=== PATIENT | female | born 1965 | race Caucasian/White ===

== ENCOUNTER 2018-03-01 19:20 | Emergency (ER) | payer BC, OTHER ==
[2018-03-01 19:34] VITALS: BP 167/97
[2018-03-01] MEDS ORDERED: TETANUS/DIPHTHERIA/PERTUSSIS 0.5 ML SYRINGE IM ONE (19:55)
[2018-03-01] MEDS ORDERED: CIPROFLOXACIN 250 MG TABLET PO STA (19:56)
[2018-03-01] MEDS ORDERED: CLINDAMYCIN 150 MG CAPSULE PO STA (19:56)
--- NOTE | 2018-03-01 20:18 | ED Physician Documentation ---
PD HPI UPPER EXT INJURY - Stated complaint Stated Complaint: DOG BITE LT HAND - Chief complaint Chief Complaint: Wound - History obtained from History obtained from: Patient - History of Present Illness Location: Left, Hand Type of injury: Laceration ([place] Tetanus is unknown. Dog looked healthy. 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 - Present Medications Home Medications: Ambulatory Orders Medication Instructions Recorded Confirmed Clindamycin [Cleocin] 0 mg ORAL QID 07/24/14 03/01/18 Prednisone 10 mg PO DAILY #26 tab.ds.pk 07/24/14 03/01/18 cefUROXime axetil [Ceftin] 500 mg PO Q12H #30 tablet 07/24/14 03/01/18 levoFLOXacin [Levaquin] 0 mg ORAL DAILY 07/24/14 03/01/18 Ciprofloxacin HCl [Cipro] 500 mg PO BID #14 tablet 03/01/18 Clindamycin [Cleocin] 300 mg PO Q6H 7 Days capsule 03/01/18 - Allergies Allergies/Adverse Reactions: Allergies Allergy/AdvReac Type Severity Reaction Status Date / Time Penicillins Allergy Edema Verified 03/01/18 19:31 - Social History Does the pt smoke?: No Smoking Status: Never smoker Does the pt drink ETOH?: Yes Does the pt have substance abuse?: No - Immunizations Immunizations are current?: No Immunizations: TDAP >10years/unknown - POLST Patient has POLST: No PD ED PE NORMAL - Vitals Vital signs reviewed: Yes - General General: Alert and oriented X 3, No acute distress - Extremities Extremities: Other (Left hand: There are scattered lacerations in the snuffbox and dorsal first webspace, about 4 5 total, a few are just puncture wounds but 2 of them do merit suturing, one being about 3 cm long and the other about a centimeter long. She has a mild neuropraxia on the radial side of the index finger and the ulnar side of the thumb, extensor tendon function in all digits and abduction and abduction in the thumb are normal.) - Neuro Neuro: Alert and oriented X 3, Normal speech Results - Vitals Vitals: Vital Signs - 24 hr 03/01/18 19:27 Heart Rate 89 Respiratory 18 Rate Blood Pressure 167/97 H O2 Saturation 96 Oxygen O2 Source Room air Procedures - Laceration (location) Left hand Length in cm: 3 Wound type: Linear Neurovascular status: Sensory intact, Motor intact, Vascular intact Anesthesia: Lidocaine 1% with epi Wound Preparation: Irrigated copiously NS Skin layer closure: Nylon, Interrupted, Size #-0 - enter number (4-0), Sutures - enter # (4) Other: Tetanus booster given Complexity: Simple PD MEDICAL DECISION MAKING - Sepsis Event Vital Signs: Vital Signs - 24 hr 03/01/18 19:27 Heart Rate 89 Respiratory 18 Rate Blood Pressure 167/97 H O2 Saturation 96 Oxygen O2 Source Room air Departure - Departure Disposition: 01 Home, Self Care Clinical Impression: Animal bite with open wound Condition: Good Record reviewed to determine appropriate education?: Yes Instructions: ED Bite Animal General Prescriptions: Ciprofloxacin HCl [Cipro] 500 mg PO BID #14 tablet Clindamycin [Cleocin] 300 mg PO Q6H 7 Days capsule Comments: Come back for any signs of infection which would include: Redness, swelling, drainage, increased pain, or fevers. Follow-up with your physician in 14 days for suture removal. Your blood pressure was elevated today on check into the emergency department. This does not mean that you have hypertension, it is a common phenomenon to come to the emergency department and have elevated blood pressure. I recommend that you see your primary care physician within the week to have it rechecked when you are feeling better.
== END 2018-03-01 20:35 | disposition home or self-care (01) ==
LOC: ED 19:20
DX: S61.412A Laceration without foreign body of left hand, initial encounter (principal); W54.0XXA Bitten by dog, initial encounter; Y92.832 Beach as the place of occurrence of the external cause; R03.0 Elevated blood-pressure reading, without diagnosis of hypertension; Z23 Encounter for immunization
CPT/HCPCS: 12002; 90471; 90715; 99283; A9270

== ENCOUNTER 2019-04-29 15:22 | Outpatient (CLI) | payer OTHER ==
--- NOTE | 2019-04-30 22:05 | XRAY Report ---
Reason: PAIN EDEMA RT FOREFOOT Procedure Date: 04/29/2019 Accession Number: [id number] / [id number] Procedure: XR - Foot 3 View RT CPT Code: FULL RESULT: EXAM: RIGHT FOOT RADIOGRAPHY EXAM DATE: 04/29/2019 03:51 PM. CLINICAL HISTORY: Pain and swelling at the forefoot. COMPARISON: None. TECHNIQUE: 3 views. FINDINGS: Bones: Normal. No fractures or bone lesions. Joints: Mild osteoarthritic changes present. No subluxations. Soft Tissues: Normal. No soft tissue swelling. IMPRESSION: Mild osteoarthritic changes without acute fracture. RADIA
== END 2019-04-29 15:23 | disposition home or self-care (01) ==
LOC: DI 15:22
PROVIDERS: ATTEND Podiatrist
DX: M19.071 Primary osteoarthritis, right ankle and foot (principal)

== ENCOUNTER 2022-10-11 17:10 | Outpatient (CLI) | payer BC, OTHER | END 2022-10-11 23:59 | disposition home or self-care (01) | LOC: LAB.N 17:10 | PROVIDERS: ATTEND Nurse Practitioner | DX: R30.0 Dysuria (principal) | CPT/HCPCS: 87086; 87181 ==

== ENCOUNTER 2023-08-07 16:27 | Emergency (ER) | payer OTHER ==
--- NOTE | 2023-08-07 17:26 | XRAY Report ---
PROCEDURE: Ankle 3 View RT INDICATIONS: Trauma. Fall. Pain. TECHNIQUE: 3 views of the ankle were acquired. COMPARISON: None. FINDINGS: Bones: 2 mm calcification projecting between the lateral malleolus and the talus. Soft tissues: Large tibiotalar joint effusion. Achilles tendon appears normal. IMPRESSION: 2 mm calcification projecting between the lateral malleolus and the talus, suggestive of an age-indet erminate injury. If this patient cannot bear weight, consider CT. Large tibiotalar joint effusion. Reviewed by: Jeyson Mckay on 08/07/2023 5:25 PM PST Approved by: Jeyson Mckay on 08/07/2023 5:25 PM PST Station ID: [id number]
--- NOTE | 2023-08-07 17:27 | XRAY Report ---
PROCEDURE: Hip w/Pelvis 2-3V LT INDICATIONS: pain TECHNIQUE: AP pelvis with lateral view(s) of the left hip(s). COMPARISON: None. FINDINGS: Bones: No fractures or dislocations. No suspicious bony lesions. Soft tissues: No suspicious soft tissue calcifications or masses. IMPRESSION: No acute bony abnormality. If there remains a high clinical concern for fracture, including inability to bear weight, consider cross-sectional imaging to exclude an occult fracture. Reviewed by: Jeyson Mckay on 08/07/2023 5:26 PM [facility] Approved by: Jeyson Mckay on 08/07/2023 5:26 PM PST Station ID: [id number]
--- NOTE | 2023-08-07 18:07 | ED Physician Documentation ---
History of Present Illness - Stated complaint Stated Complaint: FALL/RT ANKLE INJ/LT HIP PAIN - Chief complaint Chief Complaint: Trauma Ext - Additonal information Additional information: 57-year-old female here for evaluation of right hip pain and right ankle pain. She tripped on a student's coat falling twisting her ankle. Did not strike her head or lose consciousness. Pain in the right hip and right ankle with lateral swelling. Difficulty bearing weight. No history of previous injury. This is 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 - Present Medications Home Medications: Ambulatory Orders Medication Instructions Recorded Confirmed Atorvastatin Calcium 40 mg PO DAILY 08/07/23 08/07/23 oxyCODONE [Roxicodone] 5 mg PO TID PRN #15 tablet 08/07/23 - Allergies Allergies/Adverse Reactions: Allergies Allergy/AdvReac Type Severity Reaction Status Date / Time Penicillins Allergy Edema Verified 08/07/23 16:37 - Social History Does the pt smoke?: No Smoking Status: Never smoker Does the pt drink ETOH?: Yes Does the pt have substance abuse?: No - Immunizations Immunizations are current?: Yes Immunizations: TDAP >10years/unknown - POLST Patient has POLST: No PD ED PE NORMAL - Extremities Extremities: Other (Right ankle with tenderness of the distal lateral malleolus with moderate swelling and ecchymosis. Reduced range of motion secondary to pain. Patient unwilling to bear weight. No pain at the base of the fifth metatarsal medial malleolus or Achilles.) - Neuro Neuro: Alert and oriented X 3 Eye Opening: Spontaneous Motor: Obeys Commands Verbal: Oriented GCS Score: 15 Results - Vitals Vitals: Vital Signs - 24 hr 08/07/23 08/07/23 08/07/23 16:37 19:31 19:48 Temperature 36.5 C 36.7 C Heart Rate 90 88 Respiratory 16 17 18 Rate Blood Pressure 150/87 H 154/95 H O2 Saturation 98 100 Oxygen O2 Source Room air - Rads (name of study) CT right ankle Relevant Findings:: Final report received (Minimally displaced fracture through the inferior lateral malleolus with accompanying large tibiotalar effusion. Ankle mortise is maintained and there is no additional malleolus fracture. No unstable features of this fracture.) PD Medical Decision Making - ED course Complexity details: reviewed results, re-evaluated patient, d/w patient ED course: 57-year-old female here for evaluation of acute right hip and ankle pain after t ripping on a students jacket at school. Fell onto her right side. Unable to bear weight on the right ankle. Initial x-ray suggested a fracture and was recommended to have CT scan completed. CT scan does show a mildly displaced fracture Through the inferior lateral malleolus with a large tibiotalar effusion. No unstable features with this fracture. Patient was placed in a walking boot and given crutches. Advised prompt follow- up with orthopedics. Recommended Tylenol and Motrin for analgesia. Limit amount of oxycodone for more severe pain. I am prescribing a short course of short-acting opioid pain medication for this patient. 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 I have discussed that the opioids are for short term therapy only, and will not be refilled from the ED[id number] completed at bedside. Departure - Departure Disposition: Home, Self Care Clinical Impression: Work related injury Lateral malleolar fracture Qualifiers: Encounter type: initial encounter Fracture type: closed Fracture alignment: displaced Laterality: right Qualified Code(s): S82.61XA - Displaced fracture of lateral malleolus of right fibula, initial encounter for closed fracture Condition: Stable Record reviewed to determine appropriate education?: Yes Instructions: ED Fx Ankle Lateral Malleolus Prescriptions: oxyCODONE [Roxicodone] 5 mg PO TID PRN #15 tablet PRN Reason: Pain Comments: You sustained a fracture through the lateral malleolus or distal fibula of your right leg. We have placed you in a walking boot. This is to help protect the fracture as it heals. Typically these types of fractures are considered weightbearing but it may be several weeks before you are feeling comfortable bearing weight on the foot. It is important that you follow-up with orthopedics so request referral through your [facility] provider tomorrow. In general I recommend they take Tylenol or ibuprofen [id number] for discomfort. For more severe pain a limited amount of oxycodone has been sent to preferred pharmacy. Return to the ER if you are having any new or worsening symptoms Forms: PCP List
--- NOTE | 2023-08-07 19:39 | CT Report ---
PROCEDURE: LOWER EXTREMITY WO - RT INDICATIONS: right ankle rx?? TECHNIQUE: Noncontrast 3-mm axial sections acquired from the distal tibial shaft to the talar dome, with coronal and sagittal reformats. For radiation dose reduction, the following was used: automated exposure c ontrol, adjustment of mA and/or kV according to patient size. COMPARISON: None. FINDINGS: Image quality: Excellent. Bones: There is a minimally displaced fracture through the inferior lateral malleolus, below the syn desmosis. No accompanying posterior or medial malleolus fracture. Ankle mortise is intact. Medial and lateral clear spaces are measuring within normal limits. Soft tissues: Large tibiotalar effusion. Impression: Minimally displaced fracture through the inferior lateral malleolus, with accompanying large tibiotal ar effusion. Ankle mortise is maintained, and there is no additional malleolus fracture. No unstable features of t his fracture. Reviewed by: Jeyson Mckay on 08/07/2023 7:37 PM PST Approved by: Jeyson Mckay on 08/07/2023 7:37 PM PST Station ID: [id number]
[2023-08-07 19:50] VITALS: BP 154/95; O2SAT 100
[2023-08-07] MEDS ORDERED: oxyCODONE 5 MG TABLET PO STA (20:03)
== END 2023-08-07 20:39 | disposition home or self-care (01) ==
LOC: ED 16:27
DX: S82.61XA Displaced fracture of lateral malleolus of right fibula, initial encounter for closed fracture (principal); W01.0XXA Fall on same level from slipping, tripping and stumbling without subsequent striking against object, initial encounter; Y92.219 Unspecified school as the place of occurrence of the external cause; Y99.0 Civilian activity done for income or pay
CPT/HCPCS: 1040M; 73502; 73610; 73700; 99283; 99284; A9270

== ENCOUNTER 2023-09-16 08:00 | Outpatient (CLI) | payer OTHER ==
--- NOTE | 2023-09-16 14:56 | XRAY Report ---
PROCEDURE: Ankle 3 View RT INDICATIONS: RIGHT ANKLE PAIN/INJURY TECHNIQUE: 3 views of the ankle were acquired. COMPARISON: Right ankle radiographs 08/07/[address] 08/07/2023. FINDINGS: Bones: Previously seen nondisplaced intra-articular fracture at the distal fibular tip is poorly vis ualized radiographically. No associated focal cortical irregularity is seen on AP and oblique views. Ankle mortise is normally aligned. No suspicious bony lesions. Small posterior calcaneal enthesoph yte. Soft tissues: Small tibiotalar joint effusion mild nonspecific soft tissue edema seen surrounding th e ankle. IMPRESSION: Nondisplaced fracture of the distal fibula demonstrates unchanged alignment. The fracture line is not well-visualized radiographically. Reviewed by: Berny Bueno MD on 09/16/2023 2:54 PM PST Approved by: Berny Bueno MD on 09/16/2023 2:54 PM PST Station ID: [id number]
== END 2023-09-16 23:59 | disposition home or self-care (01) ==
LOC: DI.WOS 08:00
PROVIDERS: ATTEND Physician Assistant Surgical
DX: S82.831D Other fracture of upper and lower end of right fibula, subsequent encounter for closed fracture with routine healing (principal)

== ENCOUNTER 2023-12-29 11:10 | Emergency (ER) | payer OTHER ==
[2023-12-29 11:24] VITALS: O2SAT 95
--- NOTE | 2023-12-29 11:49 | XRAY Report ---
PROCEDURE: Chest 2V INDICATIONS: cough/SOA TECHNIQUE: 2 views of the chest were acquired. COMPARISON: None. FINDINGS: Surgical changes and devices: None. Lungs and pleura: Right lower lobe airspace opacity in the retrocardiac region. No pleural effusion. No pneumothorax. Mediastinum: Mediastinal contours appear normal. Heart size is normal. Bones and chest wall: No suspicious bony lesions. Overlying soft tissues appear unremarkable. IMPRESSION: Right lower lobe pneumonia Reviewed by: Mikey Morgan MD on 12/29/2023 10:48 AM CARMELO Approved by: Mikey Morgan MD on 12/29/2023 10:48 AM [facility] Station ID: [id number]
[2023-12-29 12:20] VITALS: BP 127/81
[2023-12-29 12:23] LABS: B. PARAPERTUSSIS- RESP PCR PAN NOT DETECTED; B. PERTUSSIS- RESP PCR PANEL NOT DETECTED; C. PNEUMONIAE- RESP PCR PANEL NOT DETECTED; CORONAVIRUS 229E-RESP PCR NOT DETECTED; CORONAVIRUS HKU1-RESP PCR NOT DETECTED; CORONAVIRUS NL63-RESP PCR NOT DETECTED; CORONAVIRUS OC43-RESP PCR NOT DETECTED; HUMAN METAPNEUMOVIRUS DETECTED; INFLUENZA A- RESP PCR PANEL NOT DETECTED; INFLUENZA B - RESP PCR PANEL NOT DETECTED; M. PNEUMONIAE- RESP PCR PANEL NOT DETECTED; PARAINFLUENZA VIRUS 1 NOT DETECTED; PARAINFLUENZA VIRUS 2 NOT DETECTED; PARAINFLUENZA VIRUS 3 NOT DETECTED; PARAINFLUENZA VIRUS 4 NOT DETECTED; RHINOVIRUS/ENTEROVIRUS NOT DETECTED; RSV- RESP PCR PANEL NOT DETECTED; SARS-CoV-2 -RESP PCR PANEL NOT DETECTED
--- NOTE | 2023-12-29 12:56 | ED Physician Documentation ---
PD HPI URI - Stated complaint Stated Complaint: COUGH,WEAKNESS,FEVER - Chief complaint Chief Complaint: Resp - History obtained from History obtained from: Patient, Family - History of Present Illness Timing - onset: How many weeks ago (1) Timing duration: Weeks (1) Timing details: Gradual onset Associated symptoms: Fever, Chills, Nasal congestion, Rhinorrhea, Dry cough Contributing factors: Sick contact Improves by: Rest Worsened by: Activity, Breathing - Additional information Additional information: 58-year-old female with cough, congestion for the past 1 week. Started having a fever 2 days ago. Nothing seems to make it better or worse. She states that she has just been increasingly tired. She is taking Sudafed at home for nasal congestion. She states that occasionally it feels like there is tightness in her chest with breathing but not currently having any issues breathing. was sick with similar about 2 weeks ago. Review of Systems Constitutional: reports: Fever, Chills Respiratory: reports: Cough. 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 - Present Medications Home Medications: Ambulatory Orders Medication Instructions Recorded Confirmed Atorvastatin Calcium 40 mg PO DAILY 08/07/23 12/29/23 Azithromycin [Zithromax] 0 mg PO DAILY #6 tablet 12/29/23 Cefpodoxime Proxetil [Vantin] 200 mg PO Q12H #40 tablet 12/29/23 - Allergies Allergies/Adverse Reactions: Allergies Allergy/AdvReac Type Severity Reaction Status Date / Time Penicillins Allergy Edema Verified 12/29/23 11:14 - Social History Does the pt smoke?: No Smoking Status: Former smoker Does the pt drink ETOH?: Yes Does the pt have substance abuse?: No - Immunizations Immunizations are current?: Yes Immunizations: TDAP >10years/unknown - POLST Patient has POLST: No PD ED PE NORMAL - Vitals Vital signs reviewed: Yes - General General: Alert and oriented X 3, No acute distress - HEENT HEENT: PERRL, Ears normal, Moist mucous membranes - Neck Neck: Supple, no meningeal sign - Cardiac Cardiac: RRR, Strong equal pulses - Respiratory Respiratory: No respiratory distress, Other (Mild rhonchi bilaterally) - Abdomen Abdomen: Soft, Non tender, Non distended - Derm Derm: Warm and dry - Extremities Extremities: No edema, No calf tenderness / cord - Neuro Neuro: Alert and oriented X 3 - Psych Psych: Normal mood, Normal affect Results - Vitals Vitals: Vital Signs - 24 hr 12/29/23 12/29/23 11:15 12:12 Temperature 37.4 C 98.5 C H Heart Rate 103 H 89 Respiratory 20 12 Rate Blood Pressure 146/70 H 127/81 H O2 Saturation 95 Oxygen O2 Source Room air - Labs Labs: Laboratory Tests 12/29/23 11:25 Nasal Adenovirus (PCR) NOT DETECTED Nasal B. parapertussis DNA (PCR) NOT DETECTED Nasal Coronavir 229E PCR NOT DETECTED Nasal Coronavir HKU1 PCR NOT DETECTED Nasal Coronavir NL63 PCR NOT DETECTED Nasal Coronavir OC43 PCR NOT DETECTED Nasal Enterovir/Rhinovir PCR NOT DETECTED Nasal Influenza B PCR NOT DETECTED Nasal Influenza A PCR NOT DETECTED Nasal Parainfluen 1 PCR NOT DETECTED Nasal Parainfluen 2 PCR NOT DETECTED Nasal Parainfluen 3 PCR NOT DETECTED Nasal Parainfluen 4 PCR NOT DETECTED Nasal RSV (PCR) NOT DETECTED Nasal B.pertussis DNA PCR NOT DETECTED Nasal C.pneumoniae (PCR) NOT DETECTED Ricky Human Metapneumo PCR DETECTED A Nasal M.pneumoniae (PCR) NOT DETECTED Nasal SARS-CoV-2 (PCR) NOT DETECTED - Rads (name of study) cxr Relevant Findings:: Final report received, See rad report PD Medical Decision Making - ED course Complexity details: reviewed results, re-evaluated patient, considered differential, d/w patient ED course: 58-year-old female with what appears to be a retrocardiac opacity on chest x- ray. She is positive for human metapneumovirus. No hypoxia. No respiratory distress. Possible viral pneumonia, but we will treat as bacterial. Patient is well-appearing, nontoxic. Patient counseled regarding signs and symptoms for which I believe and urgent re-evaluation would be necessary. Patient with good understanding of and agreement to plan and is comfortable going home at this time This document was made in part using voice recognition software. While efforts are made to proofread this document, sound alike and grammatical errors may occur. Departure - Departure Disposition: 01 Home, Self Care Clinical Impression: Human metapneumovirus (hMPV) pneumonia Pneumonia Qualifiers: Pneumonia type: due to unspecified organism Laterality: right Lung location: lower lobe of lung Qualified Code(s): J18.9 - Pneumonia, unspecified organism Condition: Good Instructions: ED Pneumonia Adult Follow-Up: CECE SNOW DO [Primary Care Provider] - Within 1 week Prescriptions: Cefpodoxime Proxetil [Vantin] 200 mg PO Q12H #40 tablet Azithromycin [Zithromax] 0 mg PO DAILY #6 tablet Comments: Your prescriptions were sent to [facility] in [place]. Please follow-up with your doctor for further care. You appear to have a pneumonia on chest x-ray today. You are still positive for human metapneumovirus which can cause a viral pneumonias. In either case this should start to improve over the next few days. Please take all antibiotics until gone.
== END 2023-12-29 13:07 | disposition home or self-care (01) ==
LOC: ED 11:10
DX: J18.9 Pneumonia, unspecified organism (principal); B97.81 Human metapneumovirus as the cause of diseases classified elsewhere; Z87.891 Personal history of nicotine dependence; Z11.52 Encounter for screening for COVID-19
CPT/HCPCS: 87633; 99283; 99284

== ENCOUNTER 2024-02-19 04:26 | Emergency (ER) | payer OTHER ==
--- NOTE | 2024-02-19 05:02 | ED Physician Documentation ---
History of Present Illness - Stated complaint Stated Complaint: L RIB/SHOULDER PX - Chief complaint Chief Complaint: Resp - History obtained from History obtained from: Patient - Additonal information Additional information: HPI from patient. Patient complains of the left-sided chest pain, sudden onset approximately 1 or 2 hours prior to arrival while walking from her bedroom to the bathroom. The p ain involves the entire left hemithorax anteriorly and there was a distinct pleuritic component. She did not notice any exertional component, and denies shortness of breath. The pain has gradually but progressively improved spontaneously. The pain has nearly resolved but not completely by the time of his HPI. Upon getting back into bed, patient was surprised to find that there was a clot of blood on her pillow where she had been sleeping. She does not recall coughing nor spitting up any material. The patient says that she had a very similar episode last week. At that time, she was also walking from bedroom to bathroom, had sudden onset of left-sided pleuritic chest pain. She says that episode resolved within 30 to 60 minutes of getting back into bed and resting and did not recur until tonight. Because of the episode of chest pain last week, she called her primary care provider the next day to make an appointment for evaluation which is scheduled for next week. She denies history of similar symptoms. She says she has chronic bilateral lower extremity swelling but no different than usual PD PAST MEDICAL HISTORY - Past Medical History Cardiovascular: High cholesterol Respiratory: None Neuro: None Endocrine/Autoimmune: None GI: None LINE BUILDER: Endometriosis, Other : None HEENT: None Psych: None Musculoskeletal: Chronic back pain Derm: None - Past Surgical History Past Surgical History: Yes General: Cholecystectomy /LINE BUILDER: Hysterectomy - Present Medications Home Medications: Ambulatory Orders Medication Instructions Recorded Confirmed Atorvastatin Calcium 40 mg PO DAILY 08/07/23 02/19/24 - Allergies Allergies/Adverse Reactions: Allergies Allergy/AdvReac Type Severity Reaction Status Date / Time Penicillins Allergy Edema Verified 02/19/24 04:33 - Social History Does the pt smoke?: No Smoking Status: Former smoker Does the pt drink ETOH?: Yes Does the pt have substance abuse?: No - Immunizations Immunizations are current?: Yes Immunizations: TDAP >10years/unknown - POLST Patient has POLST: No PD ED PE NORMAL - Vitals Vital signs reviewed: Yes - General General: Alert and oriented X 3, No acute distress, Well developed/nourished - Cardiac Cardiac: RRR, No murmur, No gallop, No rub - Respiratory Respiratory: No respiratory distress, Clear bilaterally - Abdomen Abdomen: Soft, Non tender PD ED PE EXPANDED - Extremities Extremities: Pedal edema bilateral Results - Vitals Vitals: Oxygen O2 Source Room air - EKG (time done) No standard instances EKG releavant findings:: EKG personally interpreted by author of this note. Relevant findings are: Rate: Rate (enter#) (81) Rhythm: NSR, LAE [place]: Normal Intervals: Normal MS, Prolonged QT (borderline) QRS: Normal Ischemia: Normal ST segments - Labs Labs: Laboratory Tests 02/19/24 02/19/24 02/19/24 05:54 05:54 05:54 WBC 4.8 RBC 4.27 Hgb 13.1 Hct 41.3 MCV 96.7 MCH 30.7 MCHC 31.7 L RDW 13.2 Plt Count 207 MPV 9.3 Neut # (Auto) 2.5 Lymph # (Auto) 1.6 [place] # (Auto) 0.4 Eos # (Auto) 0.3 Baso # (Auto) 0.0 Absolute Nucleated RBC 0.00 Nucleated RBC % 0.0 Sodium 141 Potassium 3.6 Chloride 106 Carbon Dioxide 30 Anion Gap 5.0 L BUN 12 Creatinine 0.4 L Estimated GFR (MDRD) 165 Glucose 113 H Calcium 9.6 Troponin I High Sens 5.2 - Rads (name of study) CT chest Relevant Findings:: Prelim report reviewed, See rad report PD Medical Decision Making - ED course Complexity details: reviewed results, re-evaluated patient, considered differential, d/w patient ED course: Normal CBC except insignificant finding of low MCHC. Unremarkable BMP and normal hs-cTn. Cannot apply PERC due to age. She has BLE edema, R>L; while she indicates this is chronic, it also obscures ability to detect new-onset edema, particularly unilateral which would raise concern for DVT and PE. The pleuritic component of the pain also raises concern for PE. Thus, CTA chest undertaken. Fortunately, no evidence of PE or other emergent condition on this study. Left thyroid course nodularity noted, but patient indicates she and her PCP are aware of the thyroid issue and it has been evaluated including biopsies. Etiology of patient's symptoms is not apparent at this time. Results d/w patient, return precautions reviewed, advised to seek follow up with PCP as soon as can be arranged. Departure - Departure Disposition: 01 Home, Self Care Clinical Impression: Chest pain Condition: Good Instructions: ED Chest Pain Atypical Unkn Cause, ED Chest Pain Pleurisy Comments: There were no diagnostic findings on tonight's test. The EKG, the blood tests including a cardiac blood test were all unremarkable. The CT scan of your chest did not reveal any acute/emergent problems. As we discussed, there was a small amount of fluid in the left lung, uncertain as to the cause/significance. When you follow-up this coming Saturday, mention this finding to the practitioner. Also noted on the CT scan was nodularity of the left side of your thyroid. This is likely an incidental finding, but also is worth mentioning to the medical practitioner on Saturday. Forms: PCP List Discharge Date/Time: 02/19/24 07:45
[2024-02-19] MEDS ORDERED: iohexoL-300 100 ML VIAL ONE (05:20)
[2024-02-19 05:58] LABS: BASOPHILS % (AUTO) 0.2 %; EOSINOPHILS # (AUTO) 0.3 10^3/uL (0.0-0.7); EOSINOPHILS % (AUTO) 5.6 %; HCT - HEMATOCRIT 41.3 % (37.0-47.0); HGB - HEMOGLOBIN 13.1 g/dL (12.0-16.0); LYMPHOCYTES # (AUTO) 1.6 10^3/uL (1.5-3.5); LYMPHOCYTES % (AUTO) 32.8 %; MEAN CORPUSCULAR HEMOGLOBIN 30.7 pg (27.0-31.0); MEAN CORPUSCULAR HGB CONC 31.7 g/dL (32.0-36.0); MEAN CORPUSCULAR VOLUME 96.7 fL (81.0-99.0); MEAN PLATELET VOLUME 9.3 fL (7.9-10.8); MONOCYTES # (AUTO) 0.4 10^3/uL (0.0-1.0); MONOCYTES % (AUTO) 9.1 %; NEUTROPHILS # (AUTO) 2.5 10^3/uL (1.5-6.6); NEUTROPHILS % (AUTO) 52.1 %; PLT - PLATELET COUNT 207 10^3/uL (130-450); RED BLOOD COUNT 4.27 10^6/uL (4.20-5.40); RED CELL DISTRIBUTION WIDTH 13.2 % (12.0-15.0); WHITE BLOOD COUNT 4.8 x10^3/uL (4.8-10.8)
[2024-02-19 06:13] LABS: CALCIUM 9.6 mg/dL (8.5-10.3); CREATININE 0.4 mg/dL (0.6-1.3); POTASSIUM 3.6 mmol/L (3.5-4.5)
[2024-02-19] MEDS: iohexoL-300 100 ML VIAL IVP ONE (06:32)
--- NOTE | 2024-02-19 07:44 | CT Report ---
PROCEDURE: Angio Chest INDICATIONS: left chest pain CONTRAST: Omni 300, 80mls TECHNIQUE: After the administration of intravenous contrast, 2 mm axial images were acquired from the pulmonary apices to the posterior costophrenic angles during the arterial phase. In addition, 1 mm lung kernel and 5 mm soft tissue kernel reconstructions were performed. 3-dimensional coronal oblique maximum int ensity projection (MIP) reformats, 8 mm axial MIP, and 5 mm coronal and sagittal MPR reformats were t hen performed through the thorax. For radiation dose reduction, the following was used: automated exp osure control, adjustment of mA and/or kV according to patient size. COMPARISON: None. FINDINGS: Image quality: Excellent. Large vessels: No filling defects within the opacified pulmonary arteries, accounting for motion and contrast timing. No evidence of acute aortic syndrome or aortic aneurysm. Lungs and pleura: No consolidation. No pleural effusions. No pneumothorax. No suspicious pulmonary n odules which require follow up. Mediastinum: Heart size is normal. No pericardial effusion. No large vessel abnormality. No mediastin al adenopathy by size criteria. Chest wall and lower neck: 3.5 cm left thyroid nodule. Reference image 5 of series 4.. No axillary or supraclavicular adenopathy by size. Bones: No aggressive osseous abnormality. Upper Abdomen: Unremarkable. IMPRESSION: 1. No acute pulmonary emboli. 2. No acute pulmonary process. 3. 3.5 cm left thyroid nodule. Comment: Recommend nonemergent thyroid ultrasound. Findings are concordant with preliminary interpretation provided by [facility]. Reviewed by: Levi Arroyo MD on 02/19/2024 7:43 AM PDT Approved by: Levi Arroyo MD on 02/19/2024 7:43 AM PDT Station ID: [id number]
[2024-02-19 07:52] VITALS: BP 137/82; O2SAT 97
== END 2024-02-19 07:45 | disposition home or self-care (01) ==
LOC: ED 04:26
DX: R07.9 Chest pain, unspecified (principal); R60.0 Localized edema; E04.1 Nontoxic single thyroid nodule; R91.8 Other nonspecific abnormal finding of lung field; Z87.891 Personal history of nicotine dependence
CPT/HCPCS: 36415; 71275; 80048; 84484; 85025; 93005; 99284; Q9967

== ENCOUNTER 2024-03-03 14:18 | Outpatient (CLI) | payer OTHER ==
--- NOTE | 2024-03-03 17:55 | XRAY Report ---
PROCEDURE: Chest 2V INDICATIONS: DYSPNEA TECHNIQUE: 2 views of the chest were acquired. COMPARISON: CT pulmonary angiogram, 02/19/2024. CXR 12/29/2023 FINDINGS: Surgical changes and devices: Cholecystectomy clips. Lungs and pleura: No pneumothorax. Trace left pleural effusion, similar. Lungs are clear. Mediastinum: Mediastinal contours appear normal. Heart size is normal. Bones and chest wall: No suspicious bony lesions. Overlying soft tissues appear unremarkable. IMPRESSION: Trace left pleural effusion appears similar. Reviewed by: Jay Jay Perez MD on 03/03/2024 5:53 PM PDT Approved by: Jay Jay Perez MD on 03/03/2024 5:53 PM PDT Station ID: [id number]
== END 2024-03-03 14:19 | disposition home or self-care (01) ==
LOC: DI 14:18
PROVIDERS: ATTEND Family Medicine
DX: J90 Pleural effusion, not elsewhere classified (principal)